=== PATIENT | female | born 1990 | race African-American/Black ===

== ENCOUNTER 2016-09-27 07:51 | Emergency (ER) | payer OTHER ==
[~2016-09-27] VITALS: Ht 175.3 cm; Wt 69.0 kg
[2016-09-27] MEDS ORDERED: LANS15CA PO (08:26)
[2016-09-27] MEDS ORDERED: PRENTAB31 PO (08:26)
[2016-09-27] MEDS ORDERED: METOCLOPRAMIDE INJ 10MG/2ML VIAL (J2765) IV ONE (09:00)
[2016-09-27] MEDS ORDERED: NS 1,000 ML IV ONE ×2 (09:00→10:30)
[2016-09-27 09:32] LABS: ALBUMIN 3.3 GM/DL (3.2-5.2); ALBUMIN/GLOBULIN RATIO 0.83 (1.00-1.93); ALKALINE PHOSPHATASE 56 U/L (45-117); ALT/SGPT 11 U/L (12-78); ANION GAP 13 MEQ/L (8-16); AST/SGOT 8 U/L (15-37); BILIRUBIN,DIRECT < 0.1 MG/DL (0.0-0.2); BILIRUBIN,TOTAL 0.2 MG/DL (0.2-1.0); BLOOD UREA NITROGEN 8 MG/DL (7-18); CALCIUM LEVEL 8.5 MG/DL (8.5-10.1); CARBON DIOXIDE LEVEL 19 MEQ/L (21-32); CHLORIDE LEVEL 104 MEQ/L (98-107); CREATININE FOR GFR 0.65 MG/DL (0.55-1.02); GLOMERULAR FILTRATION RATE > 60.0 (>60); GLUCOSE, FASTING 151 MG/DL (70-105); POTASSIUM SERUM 3.1 MEQ/L (3.5-5.1); SODIUM LEVEL 136 MEQ/L (136-145); TOTAL PROTEIN 7.3 GM/DL (6.4-8.2)
[2016-09-27 09:47] LABS: BASO % 0.4 % (0.0-1.0); EOS # 0.1 K/mm3 (0.0-0.50); EOS % 2.4 % (0.0-3.0); LARGE UNSTAINED CELL % 0.8 % (0.0-4.0); LYMPH # 0.7 K/mm3 (1.5-6.5); LYMPH % 14.9 % (24.0-44.0); MEAN CORPUSCULAR HEMOGLOBIN 28.1 pg (27.0-33.0); MEAN CORPUSCULAR HGB CONC 33.6 g/dl (32.0-36.5); MEAN CORPUSCULAR VOLUME 83.5 fl (80.0-96.0); MONO # 0.2 K/mm3 (0.0-0.8); MONO % 3.8 % (0.0-5.0); NEUTROPHILS # 3.7 K/mm3 (1.8-7.7); NEUTROPHILS % 77.7 % (36.0-66.0); PLATELET COUNT, AUTOMATED 206 k/mm3 (150-450); RED CELL DISTRIBUTION WIDTH 14.5 % (11.5-14.5); WHITE BLOOD COUNT 4.8 K/mm3 (4.0-10.0)
[2016-09-27] MEDS ORDERED: POTASSIUM CHLORIDE 10 MEQ SR TABLET PO ONE (10:30)
--- NOTE | 2016-09-27 11:36 | REP ---
First trimester OB ultrasound: 09/27/2016 Clinical history: Abdominal pain. 8 weeks 4 days by LMP. Transabdominal images performed with the bladder poorly filled. Uterus is anteverted. There is a gestational sac and the body and fundus shows a pole with a crown-rump length of 2.1 cm corresponding to 8 weeks 5 days which would give an EDC of 05/04/2017. heart activity 178. There is no evidence of free fluid in the cul-de-sac. The right ovary is 2.4 x 1.4 cm and shows Doppler tracing with resistive index of 0.65. Left ovary is 2.9 x 2.9 cm in greatest diameter. Doppler tracing shows resistive index of 0.33. No adjacent free fluid. Impression: 1. Uterine gestation at 8 weeks 5 days by crown-rump length giving EDC of 05/04/2017. 2. The heart rate 178 with no subchorionic bleed or adnexal mass. No pelvic free fluid. 3. Bilateral normal ovarian Doppler. Signed by Madhu Mcclain MD 09/27/2016 06:29 P
[2016-09-27 11:57] VITALS: BP 122/67
[2016-09-27] MEDS ORDERED: MACR100C43 PO (11:59)
== END 2016-09-27 11:59 | disposition home or self-care (01) ==
LOC: M ED 07:51
DX: O21.9 Vomiting of pregnancy, unspecified (principal); O26.891 Other specified pregnancy related conditions, first trimester; R78.81 Bacteremia; O99.611 Diseases of the digestive system complicating pregnancy, first trimester; K21.9 Gastro-esophageal reflux disease without esophagitis; Z79.899 Other long term (current) drug therapy
CPT/HCPCS: 76801; 80048; 80076; 81001; 83690; 85025; 86850; 86900; 86901; 87088; 87186; 93976; 96361; 96374; 99283; J2765